=== PATIENT | female | born 1975 | race Caucasian/White ===

== ENCOUNTER 2017-08-10 16:11 | Emergency (ER) | payer BC ==
[~2017-08-10] VITALS: Ht 165.1 cm; Wt 63.0 kg
[2017-08-10 16:16] VITALS: Ht 165.1 cm; Wt 63.0 kg
[2017-08-10] MEDS ORDERED: LORA1TAB54 PO (16:57)
[2017-08-10] MEDS ORDERED: BENZ100C70 PO (16:57)
[2017-08-10] MEDS ORDERED: FLUT9.9S NASAL (16:57)
--- NOTE | 2017-08-10 17:44 | ERD ---
ER Documentation Chief Complaint Date/Time DATE: 08/10/17 TIME: 17:43 Chief Complaint Pt presents with Fever, congestion, cough and body cahes X 4 days. HPI 42-year-old female presents to the emergency department complaining of fever, congestion and cough and body aches for the past 4 days. Patient denies any chest pain or shortness of breath. She tried DayQuil and NyQuil without any relief ROS All systems reviewed and are negative except as per history of present illness. Medications Home Meds Active Scripts Fluticasone Propionate (Flonase Allergy Relief) 9.9 Ml [place].susp, 1 SPRAY NASAL BID for 14 Days, #1 BOTTLE TO EACH NOSTRIL Prov:NISHANT VASQUEZ PA-C 08/10/17 Benzonatate* (Tessalon Perle*) 100 Mg Capsule, 100 MG PO Q8H Y for COUGH, #20 CAP Prov:NISHANT VASQUEZ PA-C 08/10/17 Loratadine/Pseudoephedrine* (Claritin-D* 12 Hr) 5-120 Mg Tab.er.12h, 1 TAB PO Q12, #20 TAB.SA Prov:NISHANT VASQUEZ PA-C 08/10/17 PMhx/Soc Medical and Surgical Hx: pt denies Medical Hx, pt denies Surgical Hx Hx Alcohol Use: No Hx Substance Use: No Hx Tobacco Use: No Smoking Status: Never smoker Physical Exam Vitals Vital Signs Date Time Temp Pulse Resp B/P Pulse Ox O2 Delivery O2 Flow Rate FiO2 08/10/17 16:16 99.3 75 18 121/74 98 Physical Exam Const: [] Head: Atraumatic Eyes: Normal Conjunctiva ENT: Normal External Ears, Nose and Mouth. Neck: Full range of motion..~ No meningismus. Resp: Clear to auscultation bilaterally Cardio: Regular rate and rhythm, no murmurs Abd: Soft, non tender, non distended. Normal bowel sounds Skin: No petechiae or rashes Back: No midline or flank tenderness Ext: No cyanosis, or edema Neur: Awake and alert Psych: Normal Mood and Affect Procedures/MDM This is a 42-year-old female presenting to the emergency department with symptoms signs and symptoms most consistent with a viral upper respiratory infection. Patient did not have any evidence of bacterial sinusitis, meningitis , pneumonia or strep pharyngitis. She stable to be discharged home with Claritin-D, Tessalon Perles and Flonase. Departure Diagnosis: Primary Impression: URI (upper respiratory infection) Condition: Stable Patient Instructions: Preventing Common Respiratory Infections, Uri, Viral, No Abx (Adult) Referrals: COMMUNITY CLINICS YOU HAVE RECEIVED A MEDICAL SCREENING EXAM AND THE RESULTS INDICATE THAT YOU DO NOT HAVE A CONDITION THAT REQUIRES URGENT TREATMENT IN THE EMERGENCY DEPARTMENT. FURTHER EVALUATION AND TREATMENT OF YOUR CONDITION CAN WAIT UNTIL YOU ARE SEEN IN YOUR DOCTORS OFFICE WITHIN THE NEXT 1-2 DAYS. IT IS YOUR RESPONSIBILITY TO MAKE AN APPOINTMENT FOR FOLOW-UP CARE. IF YOU HAVE A PRIMARY DOCTOR --you should call your primary doctor and schedule an appointment IF YOU DO NOT HAVE A PRIMARY DOCTOR YOU CAN CALL OUR PHYSICIAN REFERRAL HOTLINE AT IF YOU CAN NOT AFFORD TO SEE A PHYSICIAN YOU CAN CHOSE FROM THE FOLLOWING [facility] [address] [facility]. [facility] [address] [facility] [facility] [address] [facility] [address] [facility] [facility] [address] [facility]. [facility]. [address] Additional Instructions: FOLLOW UP WITH YOUR PRIMARY CARE PHYSICIAN TOMORROW.Return to this facility if you are not improving as expected. Take all medicines as directed. Return to this facility if you are not improving as expected. NISHANT VASQUEZ PA-C Aug 10, 2017 17:44
== END 2017-08-10 17:10 | disposition home or self-care (01) ==
LOC: FTE 16:11
DX: J06.9 Acute upper respiratory infection, unspecified (principal)
CPT/HCPCS: 99283